=== PATIENT | male | born 1980 | race Caucasian/White ===

== ENCOUNTER 2024-07-01 17:29 | Emergency (ER) | payer SELFPAY ==
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
[2024-07-01 18:23] VITALS: BP 176/87; PULSE 91; RESP 16; TEMP 37.5; O2SAT 98; BMI 33.0
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
[2024-07-01 20:17] VITALS: BP 175/96; PULSE 81; RESP 16; TEMP 37.2; O2SAT 99
[2024-07-01] MEDS: Ibuprofen 800 MG TABLET PO (21:46)
[2024-07-01 22:06] VITALS: BP 175/96; PULSE 81; RESP 16; TEMP 37.2; O2SAT 99
== END 2024-07-01 22:06 | disposition home or self-care (01) ==
PROVIDERS: Emergency Provider Emergency Medicine
DX: Z04.1 Encounter for examination and observation following transport accident (principal); M54.50 Low back pain, unspecified; M54.16 Radiculopathy, lumbar region; M79.642 Pain in left hand; M79.641 Pain in right hand
CPT/HCPCS: 72100; 73110; 73120; 73130; 99283